=== PATIENT | female | born 1970 | race Caucasian/White ===

== ENCOUNTER 2020-12-03 09:01 | Emergency (ER) | payer OTHER ==
[~2020-12-03] VITALS: Ht 157.5 cm; Wt 52.6 kg
[2020-12-03 10:29] LABS: BUN/CREAT RATIO (CALC) 10.1 RATIO; CREATININE 0.79 mg/dL (0.51-0.95); POTASSIUM 4.3 mmol/L (3.5-5.1)
[2020-12-03 10:31] LABS: EOSINOPHIL 3.9 % (0-5); HCT 45.1 % (37.0-47.0); HGB 14.4 g/dl (12.5-16.0); LYMPHOCYTE 16.3 % (15-48); MCH 30.3 pg (25.0-31.0); MCHC 31.9 g/dL (32.0-36.0); MCV 94.7 fL (78.0-100.0); MONOCYTE 10.7 % (0-12); MPV 9.4 fL (6.0-9.5); NEUTROPHIL 67.6 % (41-80); NRBC 0; PLT 529 K/uL (150-400); RBC 4.76 M/uL (4.20-5.40); RDW 12.6 % (11.5-14.0); WBC 10.5 K/uL (4.0-10.5)
[2020-12-03] MEDS ORDERED: VENTOLIN HFA IN18 GM INH (11:52)
== END 2020-12-03 12:17 | disposition home or self-care (01) ==
LOC: FER 09:01
PROVIDERS: Emergency Medicine
DX: J06.9 Acute upper respiratory infection, unspecified (principal); D47.3 Essential (hemorrhagic) thrombocythemia; J44.9 Chronic obstructive pulmonary disease, unspecified; F17.200 Nicotine dependence, unspecified, uncomplicated; Z98.51 Tubal ligation status; Z20.822 Contact with and (suspected) exposure to COVID-19; Z88.5 Allergy status to narcotic agent; Z88.1 Allergy status to other antibiotic agents
CPT/HCPCS: 36415; 71045; 80048; 85025; 94664; J1885; J2405; U0002